=== PATIENT | male | born 1975 | race Caucasian/White ===

== ENCOUNTER 2019-10-28 10:30 | Inpatient (IN) | payer OTHER ==
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
[2019-10-28 11:41] LABS: Amphetamine Screen,Urine Not Detected (NotDetected); Barbiturate Screen,Urine Not Detected (NotDetected); Benzodiazepines Screen,Urine Not Detected (NotDetected); Cocaine Screen,Urine Not Detected (NotDetected); Methadone Screen, Urine Not Detected (NotDetected); Opiate Screen,Urine Not Detected (NotDetected); Oxycodone Screen, Urine Not Detected (NotDetected); Phencyclidine Screen,Urine Not Detected (NotDetected); Tricyclic Antidepressant,Urine Not Detected (NotDetected); Urn Cannabinoid Scrn Not Detected (NotDetected)
[2019-10-28] MEDS ORDERED: LORazepam 1 MG TAB PO STA (14:48)
[2019-10-28] MEDS ORDERED: ZIPRASIDONE 20 MG VIAL IM PRN (15:59)
[2019-10-28] MEDS ORDERED: MAGNESIUM HYDROXIDE 2,400 MG/10 ML CUP PO PRN (15:59)
[2019-10-28] MEDS ORDERED: ACETAMINOPHEN TAB 325 MG TAB PO PRN (15:59)
[2019-10-28] MEDS ORDERED: LORazepam 1 MG TAB PO PRN (15:59)
[2019-10-28] MEDS ORDERED: MAG HYDROX/AL HYDROX/SIMETH 30 ML CUP PO PRN (15:59)
--- NOTE | 2019-10-28 18:26 | P.HPIM ---
History of Present Illness H&P Date: 10/28/19 Chief Complaint: sam Patient is a 44-year-old male past medical history of neurocardiogenic syncope, dyslipidemia, and tobacco abuse who presented due to paranoia and psychosis. In the emergency department he underwent an extensive evaluation was subsequently admitted to the mental health unit. Patient seen and examined at bedside. Apparently he had shortness of breath and cough associated with nausea, vomiting, and diarrhea approximately 4 weeks ago. At that point in time he was seen and urgent care and was told he had influenza but denied any testing. He states that he did not receive any medications for this. He then started developing some paranoia. He reports that he has recovered from his nausea, vomiting, diarrhea, and shortness of breath as well as cough. However he continues to feel anxious and is worried. He typically sees his manager legal out of [place] but does not have a primary care physician. She prescribes him metoprolol as well as Lipitor. He stopped taking these 3-4 weeks ago. We agreed on following his heart rate and blood pressure and not reinitiated taking metoprolol at this point in time. However I will restart his Lipitor. He is asking for nicotine lozenge or gum. 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 He denies any accidents or exposure to the heavy chemicals other than traditional transportation. Review of Systems Pertinent positives and negatives as discussed in HPI, a complete review of systems was performed and all other systems are negative. Past Medical History Past Medical History: No Reported History Additional Past Medical History / Comment(s): Neurocardiogenic syncope-off beta stuart for 3 weeks, dyslipidemia History of Any Multi-Drug Resistant Organisms: None Reported Past Surgical History: Orthopedic Surgery Additional Past Surgical History / Comment(s): Plates and screws and left leg secondary to fracture, left thumb surgery secondary to fracture Past Anesthesia/Blood Transfusion Reactions: No Reported Reaction Past Psychological History: Anxiety, Depression Smoking Status: Current every day smoker Past Alcohol Use History: Heavy Additional Past Alcohol Use History / Comment(s): Etoh use in past, sober 3 years. 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 - Past Family History Mother Family Medical History: Cancer Additional Family Medical History / Comment(s): Mom from breast cancer. Father Additional Family Medical History / Comment(s): "heart issues" Medications and Allergies Home Medications Medication Instructions Recorded Confirmed Type Atorvastatin [Lipitor] 20 mg PO DAILY 10/28/19 10/28/19 History Metoprolol Succinate [Toprol XL] 50 mg PO BID 10/28/19 10/28/19 History busPIRone HCL [Buspar] 30 mg PO BID 10/28/19 10/28/19 History hydrOXYzine HCL 10 mg PO TID PRN 10/28/19 10/28/19 History Allergies Allergy/AdvReac Type Severity Reaction Status Date / Time No Known Allergies Allergy Verified 10/28/19 16:35 Physical Exam Osteopathic Statement: *. No significant issues noted on an osteopathic structural exam other than those noted in the History and Physical/Consult. Vitals: Vital Signs Temp Pulse Pulse Resp BP BP Pulse Ox 10/28/19 16:41 97.2 F L 86 18 135/86 99 10/28/19 16:03 98.1 F 70 18 124/82 98 10/28/19 10:34 98 F 96 18 122/81 99 Intake and Output 10/28/19 10/28/19 10/28/19 06:59 14:59 22:59 Other: Weight 122.47 kg 114.957 kg General: non toxic, no distress, appears at stated age, normal weight Derm: no unusual rashes/lesions no unusual ecchymoses, warm, dry Head: atraumatic, normocephalic, symmetric Eyes: EOMI, no lid lag, anicteric sclera, pupils equal round reactive to light ENT: Nose and ears atraumatic, no thrush, no pharyngeal erythema Neck: No thyromegaly, no cervical lymphadenopathy, trachea midline, supple Mouth: no lip lesion, mucus membranes moist Cardiovascular: S1S2 reg, no murmur, positive posterior tibial pulse bilateral, no edema, capillary refill less than 2 seconds Lungs: CTA bilateral, no rhonchi, no rales , no accessory muscle use Abdominal: soft, nontender to palpation, no guarding, no appreciable organomegaly, normal bowel sounds Ext: no gross muscle atrophy, muscle strength 5 out of 5 in all 4 extremities g rossly, no contractures, Neuro: CN II-XI grossly intact, light touch intact all 4 extremities, finger to nose within normal limits, Psych: Alert, oriented, appropriate affect Thrombosis Risk Factor Assmnt - DVT/VTE Prophylaxis DVT/VTE Prophylaxis: Low risk, early ambulation encouraged - Choose All That Apply Each Factor Represents 1 point: Age 41-60 years, Obesity (BMI >25) Other Risk Factors: No Thrombosis Risk Factor Assessment Total Risk Factor Score: 2 Thrombosis Risk Factor Assessment Level: Low Risk Assessment and Plan Assessment: Dyslipidemia -Statin therapy Tobacco abuse -Cessation -Nicotine replacement History of neurocardiogenic syncope -Continue to hold metoprolol has not taken for 3-4 weeks -Follow blood pressures -Up and help with his manager legal Andressa -Your psych management Thank you for allowing us to participate in the care of this pleasant patient. Do not hesitate to contact us with questions. Someone can be reached from the [facility] hospitalist group all hours of the day at [phone] or via [employer].
[2019-10-29 07:07] LABS: Basophils # (A) 0.1 k/uL (0-0.2); Basophils % (A) 1 %; Eosinophils # (A) 0.2 k/uL (0-0.7); Eosinophils % (A) 3 %; HCT 44.5 % (39.0-53.0); HGB 14.2 gm/dL (13.0-17.5); Lymphocytes # (A) 2.5 k/uL (1.0-4.8); Lymphocytes % (A) 26 %; MCH 30.1 pg (25.0-35.0); MCHC 31.9 g/dL (31.0-37.0); MCV 94.3 fL (80.0-100.0); Mean Platelet Volume 8.2; Monocytes # (A) 0.6 k/uL (0-1.0); Monocytes % (A) 7 %; Neutrophils # (A) 5.8 k/uL (1.3-7.7); Neutrophils % (A) 61 %; Platelet Count 215 k/uL (150-450); RBC 4.71 m/uL (4.30-5.90); RDW 13.1 % (11.5-15.5); WBC 9.4 k/uL (3.8-10.6)
[2019-10-29 07:35] LABS: ALT 20 U/L (4-49); AST 20 U/L (17-59); African American GFR (CKD) >90 (>60 ml/min/1.73 sqM); Alkaline Phosphatase 66 U/L (38-126); Anion Gap 6 mmol/L; Blood Urea Nitrogen 16 mg/dL (9-20); Calcium 9.3 mg/dL (8.4-10.2); Carbon Dioxide 27 mmol/L (22-30); Chloride 106 mmol/L (98-107); Glucose 97 mg/dL (74-99); Non-African American GFR(CKD) >90 (>60 ml/min/1.73 sqM); Potassium 4.7 mmol/L (3.5-5.1); Sodium 139 mmol/L (137-145); Total Bilirubin 0.5 mg/dL (0.2-1.3); Total Protein 6.9 g/dL (6.3-8.2)
[2019-10-29] MEDS: ATORVASTATIN 20 MG TAB PO SCH (08:12)
[2019-10-29] MEDS: NICOTINE 21MG/24HR PATCH TRANSDERM SCH ×2 (08:12→09:44)
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
[2019-10-29] MEDS: NICOTINE POLACRILEX 2 MG GUM BUCCAL PRN ×3 (09:39→20:11)
[2019-10-29] MEDS: ZIPRASIDONE 20 MG CAP PO SCH ×2 (09:39→20:08)
[2019-10-29] MEDS: CITALOPRAM HYDROBROMIDE 20 MG TAB PO SCH (09:39)
[2019-10-29] MEDS: hydrOXYzine PAMOATE 25 MG CAP PO PRN (09:41)
[2019-10-29] MEDS: busPIRone HCl 5 MG TAB PO SCH (20:08)
[2019-10-30] MEDS: busPIRone HCl 5 MG TAB PO SCH ×2 (08:12→20:22)
[2019-10-30] MEDS: ATORVASTATIN 20 MG TAB PO SCH (08:12)
[2019-10-30] MEDS: ZIPRASIDONE 20 MG CAP PO SCH ×2 (08:13→20:22)
[2019-10-30] MEDS: CITALOPRAM HYDROBROMIDE 20 MG TAB PO SCH (08:13)
[2019-10-30] MEDS: NICOTINE POLACRILEX 2 MG GUM BUCCAL PRN ×4 (08:13→20:53)
--- NOTE | 2019-10-30 10:55 | P.PN ---
Progress Note - Text Interval history: The patient is found in group he follows me to an interview room. He indicates things are practically the same as yesterday. He indicates that his sleep is fragmented throughout the night. Appetite is decreased. We reviewed his psychotropic medications. He is reporting no side effects so far from the Geodon. He has made an effort to attend some groups. He did speak with his brother via phone whom he finds supportive. Mental status exam: The patient is alert he is dressed in his own clothing hygiene grooming adequate. Eye contact is appropriate. Speech is fluent spontaneous nonpressured. He indicates having the same paranoid and persecutory thoughts regarding the [employer]. He feels that he is safe in the hospital but he continues to feel that he is in danger outside of the hospital. He has fears that the [employer] will murder him. He reports no suicidal or homicidal ideation. He is endorsing no auditory or visual hallucinations. He demonstrates no verbal or physical aggressiveness. Insight and judgment are impaired. Plan: The patient remains acutely psychotic. We will plan to titrate the Geodon further. He is encouraged to continue participating in the milieu. Vital signs reviewed. We will continue to monitor him for safety. We will involve his brother in treatment and discharge planning as he will allow.
[2019-10-30 19:15] LABS: Appearance,Urine Clear (Clear); Bilirubin,Urine Negative (Negative); Blood,Urine Negative (Negative); Color,Urine Yellow; Glucose,Urine (UA) Negative (Negative); Ketones,Urine Negative (Negative); Leukocyte Esterase,Urine Negative (Negative); Nitrite,Urine Negative (Negative); PH, Urine 5.5 (5.0-8.0); Protein,Urine Negative (Negative); Specific Gravity,Urine 1.018 (1.001-1.035); Urobilinogen,Urine <2.0 mg/dL (<2.0)
[2019-10-31] MEDS: NICOTINE POLACRILEX 2 MG GUM BUCCAL PRN ×5 (06:28→18:15)
[2019-10-31] MEDS: CITALOPRAM HYDROBROMIDE 20 MG TAB PO SCH (08:19)
[2019-10-31] MEDS: ATORVASTATIN 20 MG TAB PO SCH (08:19)
[2019-10-31] MEDS: ZIPRASIDONE 20 MG CAP PO SCH (08:19)
[2019-10-31] MEDS: busPIRone HCl 5 MG TAB PO SCH ×2 (08:19→20:50)
--- NOTE | 2019-10-31 10:54 | P.PN ---
Progress Note - Text Interval history: The patient is found in the [facility] she follows me to an interview room. He indicates his mood is mildly less anxious. He reports no feelings of depression. He states his feelings of fearfulness are mildly lessened. He states he is not sure if he is safe outside of the hospital until he is out there after being discharged. He states he'll know right away if cars are following him. We discussed titrating the Geodon further he is agreeable. He's been compliant with his medications. No reports of any behavioral disturbance. Appetite stable sleep stable at night. He has been attending groups. He indicates that he has been speaking with his brother daily via phone. Mental status exam: The patient is alert he is dressed in his own clothing he is wearing a hospital gown over top. Hygiene grooming adequate he's wearing his eyeglasses. Speech is fluent nonpressured. Speech is not very spontaneous but he does provide answers to questions. He continues to harbor paranoid and persecutory thoughts. He is reporting no suicidal or homicidal ideation intent or plan. Again his fears that he will be murdered by the [employer]. Insight and judgment limited. He demonstrates no verbal or physical aggressiveness he demonstrates no involuntary repetitive movements. Affect is constricted. He remains oriented to person place and date. Plan: The patient will continue on his current medications however we will titrate the Geodon to 40 mg twice daily with food. We will monitor him for safety. Social work will contact the patient's brother to see how their phone conversations have been in terms of the patient demonstrating symptoms of psychosis. Vital signs reviewed. The patient encouraged to continue participating in the milieu. He requires continued psychiatric hospitalization due to his symptoms of psychosis.
[2019-10-31] MEDS: hydrOXYzine PAMOATE 25 MG CAP PO PRN (17:10)
[2019-10-31] MEDS: ZIPRASIDONE 40 MG CAP PO SCH (17:28)
[2019-11-01] MEDS: ATORVASTATIN 20 MG TAB PO SCH (07:44)
[2019-11-01] MEDS: busPIRone HCl 5 MG TAB PO SCH ×2 (07:44→20:24)
[2019-11-01] MEDS: CITALOPRAM HYDROBROMIDE 20 MG TAB PO SCH (07:44)
[2019-11-01] MEDS: ZIPRASIDONE 40 MG CAP PO SCH ×3 (07:45→17:59)
[2019-11-01] MEDS: NICOTINE POLACRILEX 2 MG GUM BUCCAL PRN ×4 (08:19→19:28)
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
[2019-11-02] MEDS: NICOTINE POLACRILEX 2 MG GUM BUCCAL PRN ×5 (04:29→18:07)
[2019-11-02] MEDS: busPIRone HCl 5 MG TAB PO SCH ×2 (08:31→21:19)
[2019-11-02] MEDS: ZIPRASIDONE 40 MG CAP PO SCH ×2 (08:31→17:52)
[2019-11-02] MEDS: ATORVASTATIN 20 MG TAB PO SCH (08:31)
[2019-11-02] MEDS: CITALOPRAM HYDROBROMIDE 20 MG TAB PO SCH (08:31)
--- NOTE | 2019-11-02 12:36 | P.PN ---
Progress Note - Text Progress Note Date: 11/02/19 Interval history: Patient seen in [facility] [place]. He is agreeable to come to the interview room. He does describe on some side effects with the new medication, Geodon. He describes some shakiness of his hands, shakiness in his chest area, this does seem to be intermittent he describes it's not really bothering him now it seems. He also describes some feelings of dizziness. We did discuss continuing to monitor for side effects, he relates that any side effects are tolerable right now. Mental status exam: He is alert and cooperative with the interview. He does not display any agitation. He described is not feeling paranoid today. He does not verbalize any hallucinations. He does not verbalize any thoughts of harm to self or others. His mood he seems to describe is doing better. He does describe ongoing anxiety. Plan: Patient be maintained on current psychotropic medication regimen continue to monitor guarding medication side effects. Continue to monitor his ongoing response to treatment.
[2019-11-02] MEDS: hydrOXYzine PAMOATE 25 MG CAP PO PRN (15:20)
[2019-11-03] MEDS: ATORVASTATIN 20 MG TAB PO SCH (07:47)
[2019-11-03] MEDS: NICOTINE POLACRILEX 2 MG GUM BUCCAL PRN ×4 (07:47→20:33)
[2019-11-03] MEDS: CITALOPRAM HYDROBROMIDE 20 MG TAB PO SCH (07:47)
[2019-11-03] MEDS: busPIRone HCl 5 MG TAB PO SCH ×2 (07:47→20:12)
[2019-11-03] MEDS: ZIPRASIDONE 40 MG CAP PO SCH ×2 (07:47→17:27)
--- NOTE | 2019-11-03 12:43 | P.PN ---
Progress Note - Text Progress Note Date: 11/02/19 Interval history: Patient was seen in [facility] again today. He says he slept about 8 hours last night. He reports that he is not feeling dizzy today and has not noticed any shakiness. He reports that he is attending groups. Mental status exam: He is alert and cooperative with the interview. His speech is fluent, not rapid or pressured. Thought processes are organized. His mood seems improved. He states that is the best he's felt since he's been here. He denies any thoughts of harm to self or others. No evidence of active psychosis or agitation. Plan: Patient will be maintained on current psychotropic medication regimen. Continue to monitor for any medication side effects monitor his ongoing response to treatment. He does talk about feeling as though he is ready to be looking at discharge planning.
[2019-11-03] MEDS: hydrOXYzine PAMOATE 25 MG CAP PO PRN (16:03)
[2019-11-04 06:42] VITALS: BP 121/74; PULSE 69; RESP 17; TEMP 97.6
[2019-11-04] MEDS: ZIPRASIDONE 40 MG CAP PO SCH (08:31)
[2019-11-04] MEDS: busPIRone HCl 5 MG TAB PO SCH (08:31)
[2019-11-04] MEDS: CITALOPRAM HYDROBROMIDE 20 MG TAB PO SCH (08:31)
[2019-11-04] MEDS: ATORVASTATIN 20 MG TAB PO SCH (08:31)
[2019-11-04] MEDS: NICOTINE POLACRILEX 2 MG GUM BUCCAL PRN (08:33)
--- NOTE | 2019-11-04 10:14 | P.PN ---
Progress Note - Text Interval history: The patient is found in the hallway he follows me to an interview room. He indicates his mood is good. He states that he sleeping at night staff recorded he slept 7 hours. He states appetite is stable. He indicates he continues to have phone conversations with his siblings and they are supportive. He is reporting no side effects with his medication at this time. He has been compliant with the BuSpar Celexa and Geodon. He no longer feels that the Geodon is sedating. Mental status exam: The patient is alert he is pleasant and cooperative he is dressed in his own clothing hygiene grooming are adequate. Eye contact is appropriate speech is fluent and spontaneous nonpressured. He indicates his mood is good. Affect is constricted. He is reporting no auditory or visual hallucinations or any specific delusions. He is reporting no suicidal or homicidal ideation intent or plan. He states that he feels safe here in the hospital. He states he doesn't "know what it's like out there" but states he will be okay. He is referring to people following him/being in danger. He feels that his presentation was due to his viral illness and possibly sleep deprivation. He demonstrates no involuntary repetitive movements he demonstrates no verbal or physical aggressiveness. Plan: The patient will continue on his current medication. We will continue to monitor him for safety. Social work will reach out to his siblings again to get their opinion as to how he sounds over the phone. He may be starting to stabilize. We will discuss his progress on the mental health unit during treatment team meeting further today. Vital signs reviewed. He is encouraged to fully participate in the milieu.
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
[2019-11-04] MEDS: hydrOXYzine PAMOATE 25 MG CAP PO PRN (13:24)
== END 2019-11-04 13:32 | disposition home or self-care (01) | DRG 885 ==
LOC: EC 10:30 → 3MHU 15:44
PROVIDERS: ADMIT Psychiatry & Neurology Psychiatry; ATTEND Psychiatry & Neurology Psychiatry
DX: F23 Brief psychotic disorder (principal); F41.9 Anxiety disorder, unspecified; F10.21 Alcohol dependence, in remission; E78.5 Hyperlipidemia, unspecified; R55 Syncope and collapse; F17.210 Nicotine dependence, cigarettes, uncomplicated; Z71.6 Tobacco abuse counseling; E66.9 Obesity, unspecified; Z68.34 Body mass index [BMI] 34.0-34.9, adult; Z79.899 Other long term (current) drug therapy; Z98.890 Other specified postprocedural states; Z56.0 Unemployment, unspecified; Z62.810 Personal history of physical and sexual abuse in childhood; Z87.81 Personal history of (healed) traumatic fracture; Z80.3 Family history of malignant neoplasm of breast
CPT/HCPCS: 80053; 80306; 81003; 82075; 85025; 99285